=== PATIENT | female | born 1960 | race Caucasian/White ===

== ENCOUNTER → 2017-03-12 | Outpatient (CLI) | payer BC ==
[~2017-03-12] MED LIST: ATOR40TA69 PO; BIPAP; CHOL200022 PO; CPAP; DICL100G39 TP; EPIN0.3P3 IM; FERR325T24 PO; FEXO180T87 PO; FISH1CAP15 PO; FLU45SYR17 IN; FLU45SYR25 IM ONLY; FLU60SYR30 IM ONLY; INSU100C10 SQ; INSU100I30 SQ; INSU100V24 SQ; LANI SUBQ; LEV125 PO; LEVO150T78 PO; LEVO175T42 PO; LOSA25TA50 PO; METF-420 PO; OXYGENHOME INH; VERA240C10 PO; ZOST19404 SQ; [UNRECOGNIZED DRUG - CODE] PO; [UNRECOGNIZED DRUG - OTHER] IM ONLY
[2017-03-12 08:55] LABS: LDL CHOLESTEROL 78 mg/dl
== END ==
LOC: LAB 08:17
PROVIDERS: ATTEND Internal Medicine
DX: I10 Essential (primary) hypertension (principal); E78.00 Pure hypercholesterolemia, unspecified; E11.65 Type 2 diabetes mellitus with hyperglycemia
CPT/HCPCS: 36415; 82040; 82247; 82310; 82374; 82435; 82465; 82565; 82947; 83036; 83718; 84075; 84132; 84155; 84295; 84443; 84450; 84460; 84478; 84520

== ENCOUNTER 2017-03-26 08:12 | Outpatient (RCR) | payer BC ==
[~2017-03-26 08:12] MED LIST changes: +LEVO25TA61 PO
--- NOTE | 2017-03-26 12:22 | Medical Nutrition Therapy ---
Nutritional Education Nutrition Education Topic: Diabetic Nutrition Learning Readiness: Interested Teaching Methods: Discussion Response to Teaching: Verbalize understanding Teaching Recipient: Patient Nutrition Counseling: Pt was having problems with CGM monitor to her insulin pump. CGM was having readings that was 100 over from BG reading. Reviewed with [employer] educator and forwarded her notes and recommendations to pt. Pt was also getting reading that "can't find sensor". Pt took sensor recorder off, it was put into time clock inspector and it was determined that recorder was not working. Recommend pt try recharging to ensure it had adequate charge and call [employer] help desk. CGM is in [place] and may need to be replaced. Pt also requested help with diet. Pt states has been "stress eating" but now wants to get back to weight loss efforts. Pt was interested in ketogenic diet with T2DM. Discussed new research artical that showed possitive results, lower A1C and more wt loss with ketogenic. Discussed pros and cons. Provided meal plan of 60gm CHO, 106gm fat, 100gm protein/day. Pt will be utilizing fit bit to monitor food intake. Nutrition Monitoring & Eval RD Patient Assessment Time: [address] Assessment Type: RD Education Nutritional Comment: Provided 45 minutes diabetes eductiton focusing on nutrition, meal planning and insulin pump. Copies To Copies to: KEVIN JOHANSEN MD, BETH Mar 26, 2017 10:17
== END 2017-04-07 16:02 | disposition home or self-care (01) ==
LOC: DIET 08:12
PROVIDERS: ATTEND Internal Medicine
DX: E11.65 Type 2 diabetes mellitus with hyperglycemia (principal)
CPT/HCPCS: G0108

== ENCOUNTER → 2017-04-30 | Outpatient (CLI) | payer BC ==
[~2017-04-30] MED LIST changes: +LEVO200T50 PO
== END ==
LOC: LAB 08:27
PROVIDERS: ATTEND Nurse Practitioner Family
DX: E03.9 Hypothyroidism, unspecified (principal)
CPT/HCPCS: 36415; 84443

== ENCOUNTER → 2017-08-16 | Outpatient (CLI) | payer BC ==
[~2017-08-16] MED LIST changes: -METF-420 PO; +METF-421 PO
[2017-08-16 09:12] LABS: LDL CHOLESTEROL 69 mg/dl
== END ==
LOC: LAB 08:20
PROVIDERS: ATTEND Nurse Practitioner Family
DX: I10 Essential (primary) hypertension (principal); Z83.3 Family history of diabetes mellitus
CPT/HCPCS: 36415; 82040; 82247; 82310; 82374; 82435; 82465; 82565; 82947; 83036; 83718; 84075; 84132; 84155; 84295; 84443; 84450; 84460; 84478; 84520

== ENCOUNTER → 2018-01-31 | Outpatient (CLI) | payer BC ==
[~2018-01-31] MED LIST changes: +CHOL200018 PO; -CHOL200022 PO; +FLU60VIA41 IM; +LACT1CAP6 PO; -LOSA25TA50 PO; +LOSA25TA52 PO; -METF-421 PO; +METF-452 PO; +[UNRECOGNIZED DRUG - OTHER] PO
[2018-01-31 09:15] LABS: PLATELET COUNT, AUTOMATED 278 K/uL (150-450)
[2018-01-31 09:26] LABS: LDL CHOLESTEROL 51 mg/dl
== END ==
LOC: LAB 08:44
PROVIDERS: ATTEND Internal Medicine
DX: E78.00 Pure hypercholesterolemia, unspecified (principal); Z83.3 Family history of diabetes mellitus; Z82.49 Family history of ischemic heart disease and other diseases of the circulatory system
CPT/HCPCS: 36415; 82040; 82247; 82310; 82374; 82435; 82465; 82565; 82947; 83036; 83718; 84075; 84132; 84155; 84295; 84443; 84450; 84460; 84478; 84520; 85025

== ENCOUNTER → 2018-05-30 | Outpatient (CLI) | payer BC ==
[~2018-05-30] MED LIST changes: +DOXY-181 PO; +EPIN0.3P15 IM; +FLAS1EAC2 MC; +FLAS1KIT2 SUBQ; -LOSA25TA52 PO; +LOSA25TA57 PO; +VARI50KI IM
[2018-05-30 16:29] LABS: PLATELET COUNT, AUTOMATED 361 K/uL (150-450)
== END ==
LOC: LAB 15:31
PROVIDERS: ATTEND Nurse Practitioner Family
DX: E11.65 Type 2 diabetes mellitus with hyperglycemia (principal); I10 Essential (primary) hypertension
CPT/HCPCS: 36415; 82040; 82247; 82310; 82374; 82435; 82565; 82947; 83036; 84075; 84132; 84155; 84295; 84443; 84450; 84460; 84520; 85025

== ENCOUNTER → 2018-06-23 | Outpatient (CLI) | payer BC ==
[~2018-06-23] MED LIST changes: +ALBU8.5H IH; +BENZ200C15 PO; +GUAI120L3 PO; +LEVO750T27 PO; +PRED20TA6 PO; +VERA240T95 PO
--- NOTE | 2018-06-23 16:29 | RADIOLOGY IMAGING REPORT ---
FACILITY: [facility] [place] PATIENT NAME: Jessica Jacob : 1960 MR: [id number] V: [id number] EXAM DATE: ORDERING PHYSICIAN: WILBER SCANLON TECHNOLOGIST: Location: [facility] [place] Patient: Jessica Jacob : 1960 Visit/Account:[id number] Date of Sevice: 06/23/2018 2 VIEWS CHEST INDICATION: Low oxygen saturation. COMPARISON: None available FINDINGS: Cardiomediastinal silhouette and pulmonary vessels within normal limits. Faint opacity seen lateral left lower lobe. The remaining lung hernandez are clear. There is no pneumothorax or pleural effusion. No nodule. Upper abdomen is unremarkable. No acute bony abnormality. IMPRESSION: 1. Early left lower lobe infiltrate. Suggest follow-up films to assess for clearing or other etiolog ies. I called report to WILBER SCANLON at 06/23/2018 3:34 PM. Report Dictated By: Denny Trujillo at 06/23/2018 3:58 PM Report E-Signed By: Denny Truijllo at 06/23/2018 4:25 PM WSN:[id number]
== END ==
LOC: RAD 15:19
PROVIDERS: ATTEND Nurse Practitioner Primary Care
DX: R91.8 Other nonspecific abnormal finding of lung field (principal)
CPT/HCPCS: 71046

== ENCOUNTER → 2018-07-18 | Outpatient (CLI) | payer BC ==
--- NOTE | 2018-07-18 13:45 | RADIOLOGY IMAGING REPORT ---
FACILITY: [facility] PATIENT NAME: Jessica Jacob : 1960 MR: [id number] V: [id number] EXAM DATE: ORDERING PHYSICIAN: WILBER SCANLON TECHNOLOGIST: Location: [facility] Patient: eJssica Jacob : 1960 Visit/Account:[id number] Date of Sevice: 07/18/2018 CHEST PA LAT INDICATION: pneumonia follow-up COMPARISON: 06/23/2018 FINDINGS: Heart size within normal limits. Previously described left lower lobe infiltrate has resolved. There is stable scarring versus atelec tasis within the right midlung. There is no pneumothorax or pleural effusion. IMPRESSION: 1. Clearing of left lower lobe infiltrate, no acute cardiopulmonary process identified Report Dictated By: Adolfo Queen at 07/18/2018 11:23 AM Report E-Signed By: Adolfo Queen at 07/18/2018 11:24 AM WSN:[id number]
== END ==
LOC: RAD 10:08
PROVIDERS: ATTEND Nurse Practitioner Primary Care
DX: R91.8 Other nonspecific abnormal finding of lung field (principal)
CPT/HCPCS: 71046

== ENCOUNTER → 2018-08-17 | Outpatient (CLI) | payer BC | LOC: RESP 07:20 | PROVIDERS: ATTEND Nurse Practitioner Primary Care | DX: R09.02 Hypoxemia (principal) | CPT/HCPCS: 94060; 94726; 94729 ==

== ENCOUNTER → 2018-09-13 | Outpatient (CLI) | payer BC ==
--- NOTE | 2018-09-14 09:21 | RADIOLOGY IMAGING REPORT ---
FACILITY: [facility] PATIENT NAME: LAVON EARL : [id number] MR: [id number] V: [id number] EXAM DATE: [id number] ORDERING PHYSICIAN: ADAM SUTHERLAND TECHNOLOGIST: Rosa Randall PROCEDURE: BILATERAL DIGITAL SCREENING MAMMOGRAM WITH CAD ASSISTED INTERPRETATION & 3D TOMOSYNTHESIS. REASON FOR STUDY: Screening. FAMILY HISTORY OF BREAST CANCER: None. BREAST PROCEDURES/TREATMENTS: None. COMPARISON: 10/21/16, 03/13/15, 08/23/13, 06/16/12. VIEWS OBTAINED: Bilateral 2D & 3D full field CC & MLO projections & bilateral 2D full field XCC projections. BREAST DENSITY: The breasts are almost entirely fatty. MAMMOGRAM FINDINGS: The parenchymal pattern has remained stable allowing for difference in mammographic technique & patient positioning. IMPRESSION: BIRADS 1: Negative. DIAGNOSTIC CATEGORY 1--NEGATIVE. RECOMMENDATIONS: ROUTINE MAMMOGRAM AND CLINICAL EVALUATION. Dictated by: Ana Lilia Guevara M.D. on 09/13/2018 at 17:41 Transcribed by: JOSH on 09/14/2018 at 8:39 Approved by: Ana Lilia Guevara M.D. on 09/14/2018 at 9:17 [facility]
== END ==
LOC: MAMO 00:32
PROVIDERS: ATTEND Nurse Practitioner Family
DX: Z12.31 Encounter for screening mammogram for malignant neoplasm of breast (principal)
CPT/HCPCS: 77063; 77067

== ENCOUNTER → 2018-10-03 | Outpatient (CLI) | payer BC | LOC: RAD 01:11 | PROVIDERS: ATTEND Internal Medicine | DX: I34.0 Nonrheumatic mitral (valve) insufficiency (principal); I07.1 Rheumatic tricuspid insufficiency; I37.0 Nonrheumatic pulmonary valve stenosis | CPT/HCPCS: 93306 ==

== ENCOUNTER → 2018-10-28 | Outpatient (CLI) | payer BC ==
[2018-10-28 08:52] LABS: PLATELET COUNT, AUTOMATED 295 K/uL (150-450)
[2018-10-28 09:28] LABS: LDL CHOLESTEROL 66 mg/dl
== END ==
LOC: LAB 08:27
PROVIDERS: ATTEND Nurse Practitioner Family
DX: I10 Essential (primary) hypertension (principal); E11.65 Type 2 diabetes mellitus with hyperglycemia; D50.9 Iron deficiency anemia, unspecified; E78.00 Pure hypercholesterolemia, unspecified; E03.9 Hypothyroidism, unspecified
CPT/HCPCS: 36415; 82040; 82247; 82310; 82374; 82435; 82465; 82565; 82728; 82947; 83036; 83540; 83550; 83718; 84075; 84132; 84155; 84295; 84443; 84450; 84460; 84478; 84520; 85025